=== PATIENT | female | born 1985 ===

== ENCOUNTER → 2017-06-11 09:04 | Outpatient (CLI) | payer OTHER | END | disposition home or self-care (01) | LOC: LAB 09:04 | DX: E03.8 Other specified hypothyroidism (principal); D63.8 Anemia in other chronic diseases classified elsewhere; N39.0 Urinary tract infection, site not specified; E78.2 Mixed hyperlipidemia; Z34.81 Encounter for supervision of other normal pregnancy, first trimester ==

== ENCOUNTER 2017-08-05 16:26 | Outpatient (CLI) | payer OTHER | END 2017-08-05 17:58 | disposition home or self-care (01) | LOC: LAB 16:26 | DX: Z34.92 Encounter for supervision of normal pregnancy, unspecified, second trimester (principal) ==

== ENCOUNTER 2017-10-28 16:04 | Outpatient (CLI) | payer OTHER | END 2017-10-28 17:26 | disposition home or self-care (01) | LOC: NST 16:04 | DX: Z34.83 Encounter for supervision of other normal pregnancy, third trimester (principal) ==

== ENCOUNTER → 2017-12-19 16:24 | Outpatient (CLI) | payer OTHER | END | disposition home or self-care (01) | LOC: LAB 16:24 | DX: Z34.82 Encounter for supervision of other normal pregnancy, second trimester (principal) ==

== ENCOUNTER 2018-01-02 13:15 | Inpatient (IN) | payer OTHER ==
[~2018-01-02] VITALS: Ht 165.1 cm; Wt 86.6 kg
[2018-01-09] MEDS ORDERED: LAMICTAL XR300 MG PO (12:04)
[2018-01-09] MEDS ORDERED: KEPPRA XR750 MG PO (12:05)
[2018-01-09] MEDS ORDERED: PRENATAL TABLE1 EAC4 PO (12:06)
== END 2018-01-11 12:09 | DRG 767 ==
LOC: LDR 01-09 10:46 → OB/GYN 01-09 10:46 → LDR 01-23 13:15
PROC: 0HQ9XZZ Repair Perineum Skin, External Approach (ICD-10-PCS; principal; 2018-01-09)
PROC: 10E0XZZ Delivery of Products of Conception, External Approach (ICD-10-PCS; 2018-01-09)
PROC: 4A1HXCZ Monitoring of Products of Conception, Cardiac Rate, External Approach (ICD-10-PCS; 2018-01-09)
PROC: 4A033R1 Measurement of Arterial Saturation, Peripheral, Percutaneous Approach (ICD-10-PCS; 2018-01-09)
PROC: 0UB70ZZ Excision of Bilateral Fallopian Tubes, Open Approach (ICD-10-PCS; 2018-01-10)
DX: O70.0 First degree perineal laceration during delivery (principal); Z37.0 Single live birth; Z30.2 Encounter for sterilization; Z3A.38 38 weeks gestation of pregnancy